=== PATIENT | female | born 1950 | race Caucasian/White ===

== ENCOUNTER → 2016-09-25 | Outpatient (CLI) | payer BC, OTHER ==
[~2016-09-25] MED LIST: ALBU1AER9 INH; HYT/2 PO; MOME100A INH; MULT-506 PO; RIVA1TAB4 PO; SNG10 PO; SPIR25TA89 PO; THEO200T27 PO
--- NOTE | 2016-09-25 14:38 | DIAGNOSTIC IMAGING REPORT ---
CHEST 2 VIEWS ROUTINE CLINICAL HISTORY: Chronic bronchitis COMPARISON STUDY: 12/07/2013 FINDINGS: The cardiac and mediastinal contours remain stable. There is persistent blunting of the lateral costophrenic angles. There is no failure. There is no focal pulmonary consolidation.[ IMPRESSION: Stable blunting of the lateral costophrenic angles. No evidence of acute parenchymal consolidation. No evidence of failure. Electronically signed by: Kuldip Pitts M.D. 09/25/2016 2:37 PM Dictated Date/Time: 09/25/2016 2:34 PM
[2016-09-25 16:22] LABS: INFLUENZA A PCR POS for Influ A (NEG); INFLUENZA B PCR Neg for Influ B (NEG)
== END | disposition home or self-care (01) ==
LOC: C.LAB 14:04
PROVIDERS: ATTEND Internal Medicine Pulmonary Disease
DX: J42 Unspecified chronic bronchitis (principal)

== ENCOUNTER → 2017-02-26 | Outpatient (CLI) | payer BC, OTHER ==
[2017-02-26 12:27] LABS: BASO % 0.8 %; BASO ABS # 0.08 K/uL (0-0.2); COMPLETE YES; EOS % 17.5 %; HEMATOCRIT 44.3 % (37-47); IG% 0.1 %; LYMPH % 23.9 %; LYMPH ABS # 2.29 K/uL (1.2-3.4); MEAN CELL VOLUME 89.5 fL (80-100); MEAN CORPUSCULAR HEMOGLOBIN 29.5 pg (25-34); MEAN PLATELET VOLUME 11.4 fL (7.4-10.4); MONO % 5.8 %; NEUT % 51.9 %; PLATELET COUNT 232 K/uL (130-400); RED BLOOD COUNT 4.95 M/uL (4.2-5.4); WHITE BLOOD COUNT 9.59 K/uL (4.8-10.8)
[2017-02-26 12:48] LABS: ALT/SGPT 20 U/L (12-78); AST/SGOT 15 U/L (15-37); BLOOD UREA NITROGEN 19 mg/dl (7-18); BUN/CREATININE RATIO 20.5 (10-20); CALCIUM 10.1 mg/dl (8.5-10.1); CARBON DIOXIDE 26 mmol/L (21-32); CHLORIDE 109 mmol/L (98-107); CHOLESTEROL 187 mg/dl (0-200); CREATININE 0.93 mg/dl (0.60-1.20); GLUCOSE 89 mg/dl (70-99); POTASSIUM 4.1 mmol/L (3.5-5.1); SODIUM 142 mmol/L (136-145); TRIGLYCERIDES 63 mg/dl (0-150); VERY LOW DENSITY LIPOPROT CALC 13 mg/dl
[2017-02-26 12:51] LABS: ALKALINE PHOSPHATASE 74 U/L (45-117); CHOLESTEROL/HDL RATIO 3.2; HDL CHOLESTEROL 59 mg/dl; LDL CHOLESTEROL CALCULATED 115 mg/dl
== END | disposition home or self-care (01) ==
LOC: C.LAB 07:09
PROVIDERS: ATTEND Nurse Practitioner Family
DX: I10 Essential (primary) hypertension (principal); Z13.220 Encounter for screening for lipoid disorders; Z11.59 Encounter for screening for other viral diseases

== ENCOUNTER → 2017-08-12 | Outpatient (CLI) | payer BC, OTHER ==
[~2017-08-12] MED LIST changes: +SPIR25TA5 PO; -SPIR25TA89 PO
--- NOTE | 2017-08-13 13:46 | MAMMOGRAPHY REPORT ---
BILATERAL DIGITAL SCREENING MAMMOGRAM TOMOSYNTHESIS WITH CAD: 08/12/2017 CLINICAL HISTORY: Routine screening. Patient has no complaints. TECHNIQUE: Breast tomosynthesis in addition to standard 2D mammography was performed. Current study was also evaluated with a Computer Aided Detection (CAD) system. COMPARISON: Comparison is made to exams dated: 06/02/2016 mammogram, 06/04/2015 ultrasound, 06/04/20 15 mammogram, 05/30/2015 mammogram, 05/29/2014 mammogram, and 05/27/2013 mammogram - [facility]. BREAST COMPOSITION: There are scattered areas of fibroglandular density in both breasts. FINDINGS: There are mild vascular calcifications in the breasts. Scattered round and punctate macro calcifications are stable comparing to prior exams. No suspicious mass, architectural distortion or cluster of microcalcifications is seen. IMPRESSION: ACR BI-RADS CATEGORY 2: BENIGN There is no mammographic evidence of malignancy. A 1 year screening mammogram is recommended. The pa tient will receive written notification of the results. Approximately 10% of breast cancers are not detected with mammography. A negative mammographic report should not delay biopsy if a clinically suggestive mass is present. Avis Adler M.D. ay/:08/12/2017 15:30:16 Tool Room Attendant: Katarzyna Jeronimo, [facility] letter sent: Normal 1/2 BI-RADS Code: ACR BI-RADS Category 2: Benign
== END | disposition home or self-care (01) ==
LOC: C.MAMM 14:03
PROVIDERS: ATTEND Nurse Practitioner Family
DX: Z12.31 Encounter for screening mammogram for malignant neoplasm of breast (principal)

== ENCOUNTER → 2017-12-29 | Outpatient (CLI) | payer BC, OTHER ==
[~2017-12-29] MED LIST changes: -SPIR25TA5 PO; +SPIR25TA89 PO
--- NOTE | 2017-12-29 10:39 | DIAGNOSTIC IMAGING REPORT ---
TWO VIEW CHEST CLINICAL HISTORY: Cystocele. Health maintenance. FINDINGS: PA and lateral chest radiographs are compared to study dated 09/25/2016 and correlated with chest CT dated 10/18/2013. The cardiomediastinal silhouette is unremarkable. There is atherosclerotic calcification of the thoracic aorta. Emphysema and chronic interstitial thickening are similar to previous. Blunting of the left costophrenic sulcus is similar to previous and likely related to pleural thickening. No airspace consolidation or pleural effusion is identified. Mild apical scarring is observed. There is no pneumothorax. The skeletal structures are osteopenic. The bony thorax appears intact. IMPRESSION: No active disease in the chest. Electronically signed by: Robel Jordan M.D. 12/29/2017 10:38 AM Dictated Date/Time: 12/29/2017 10:36 AM
== END | disposition home or self-care (01) ==
LOC: C.RAD1850 10:27
PROVIDERS: ATTEND Physician Assistant
DX: Z00.00 Encounter for general adult medical examination without abnormal findings (principal); Z51.81 Encounter for therapeutic drug level monitoring; J42 Unspecified chronic bronchitis; K57.90 Diverticulosis of intestine, part unspecified, without perforation or abscess without bleeding; N81.11 Cystocele, midline; Z79.01 Long term (current) use of anticoagulants